=== PATIENT | male | born 1950 ===

== ENCOUNTER 2017-10-12 09:30 | Observation (INO) | payer BC, OTHER ==
[2017-10-12] MEDS ORDERED: ASPIRIN 325 MG TAB ONE (14:14)
[2017-10-12] MEDS ORDERED: METOPROLOL SUCCINATE XR 50 MG TAB PO ONE (21:35)
[2017-10-12] MEDS ORDERED: ASPIRIN 325 MG TAB PO ONE (22:15)
--- NOTE | 2017-10-13 06:54 | CPEKG ---
Heart Rate: 63 RR Interval: 952 P-R Interval: 152 QRSD Interval: 104 QT Interval: 432 QTC Interval: 443 P Crestline: 64 QRS Crestline: -19 T Wave Crestline: 37 EKG Severity - ABNORMAL ECG - EKG Impression: SINUS RHYTHM EKG Impression: MULTIPLE ATRIAL PREMATURE COMPLEXES EKG Impression: PROBABLE LEFT ATRIAL ABNORMALITY EKG Impression: BORDERLINE LEFT AXIS DEVIATION Electronically Signed By: Arden Gan 13-Oct-2017 11:26:45
[2017-10-13] MEDS ORDERED: ASPIRIN 81 MG CHEWABLE TAB PO SCH (09:00)
[2017-10-13] MEDS ORDERED: ROSUVASTATIN CALCIUM 20 MG TAB PO SCH (09:00)
[2017-10-13] MEDS ORDERED: RAMIPRIL 2.5 MG CAP PO SCH (09:00)
[2017-10-13 14:29] VITALS: BP 130/91
[2017-10-13] MEDS ORDERED: METOPROLOL SUCCINATE XR 50 MG TAB PO SCH (21:00)
--- NOTE | 2017-10-14 16:26 | EDPHY ---
H & P Stated Complaint: NO CHARTING FOUND WITH PT C/O POSS CARDIAC Time Seen by Provider: 10/12/17 09:50 - Personal History Current Tetanus/Diphtheria Vaccine: Yes Current Tetanus Diphtheria and Acellular Pertussis (TDAP): Yes - Medical/Surgical History Hx Cardiac Disease: Yes Constitutional: Initial Vital Signs Temperature (C) 36.4 C 10/12/17 09:50 Heart Rate 81 10/12/17 09:50 Respiratory Rate 16 10/12/17 09:50 Blood Pressure 143/86 H 10/12/17 09:50 O2 Sat (%) 98 10/12/17 09:50 Allergies/Adverse Reactions: No Known Allergies Allergy (Unverified 10/12/17 22:27) Home Medications: Medication Instructions Recorded Metoprolol Succinate Xr [Toprol Xl 50 mg PO HS 10/12/17 50 mg (*)] Ramipril [Altace 2.5mg (*)] 2.5 mg PO DAILY 10/12/17 Rosuvastatin Calcium [Crestor 20mg 5 mg PO DAILY 10/12/17 (*)] Aspirin [Aspirin 325 mg (*)] 325 mg PO DAILY #90 tab 10/13/17 Medical Decision Making ED Course/Re-evaluation: This note was created during prolonged hospital-wide EHR downtime and may be incomplete or contain inaccuracies to due circumstance limitations. CHIEF COMPLAINT: Chest pain, arm numbness HISTORY OF PRESENT ILLNESS: The patient is a 67 y/o male with hypertension and hyperlipidemia arriving with his family member complaining of chest pain onset last night while sleeping. He arrived here from [place] on , 5 days ago. He noticed mild left-sided chest pressure in the middle of the night, but was able to return to sleep. When he woke around 07:30, 1 hour ago, he continued to feel poor. He describes left-sided chest pain, lightheadedness, diaphoresis, dyspnea, and left arm numbness. He has had similar symptoms previously, "but usually they just come and goes real quick." He had a stress test 2 years ago that he thinks was normal. He has never had a catheterization or cardiac ultrasound. He takes a baby aspirin daily and took 3 this morning due to symptoms. No recent illness or trauma. His father had cardiac disease. REVIEW OF SYSTEMS: A 10 point review of systems was performed and is negative with the exception of the elements mentioned in the history of present illness. PHYSICAL EXAM: HR, BP, O2 Sat, RR. Temp noted General Appearance: Alert, well hydrated, appropriate, and non-toxic appearing. Head: Atraumatic without scalp tenderness or obvious injury Eyes: Pupils equal, round, reactive to light and accommodation, EOMI, no trauma , no injection. Nose: Atraumatic, no rhinorrhea, clear. Throat: Mucus membranes moist. Neck: Supple Respiratory: No retractions, no distress, no wheezes, and no accessory muscle use. Lungs are clear to auscultation bilaterally. Cardiovascular: Regular rate and rhythm, no murmurs, rubs, or gallops. Good capillary refill all extremities. Gastrointestinal: Abdomen is soft, non-tender, non-distended, no masses, no rebound, no guarding, no peritoneal signs. Musculoskeletal: Normal active ROM of all extremities, atraumatic. Neurological: Alert, appropriate, and interactive. Nonfocal. Skin: No rashes, good turgor, no nodules on palpation. PAST MEDICAL HISTORY: Hypertension, hyperlipidemia PAST SURGICAL HISTORY: Denies SOCIAL HISTORY: Visiting from [place]. Family member at bedside. Nonsmoker. DIAGNOSTICS/PROCEDURES/CRITICAL CARE TIME: The 12 lead EKG was interpreted by myself. Sinus mechanism, PVC. See hard copy and/or "tracemaster" electronic copy for interpretation. Chest x-ray: negative The 12 lead EKG was interpreted by myself. Sinus mechanism, poor R wave progression. See hard copy and/or "tracemaster" electronic copy for interpretation. DIFFERENTIAL DIAGNOSIS: The differential diagnosis for the patient's chest pain included but was not limited to myocardial ischemia, pulmonary embolus, chest wall pain, pleural inflammation, and pulmonary infectious causes. MEDICAL DECISION MAKING: This is a 67 y/o male with some cardiac risk factors including hypertension and hyperlipidemia who presents with a few-hour history of left-sided chest pain, dyspnea, lightheadedness, diaphoresis, arm numbness, and general malaise. Exam is unremarkable. Concern for acute coronary syndrome and other cardiac etiologies. Plan for IV, labs, EKG, chest x-ray. Labs including troponin are negative. Chest x-ray negative. No signs of acute ischemia on EKG. 1026: Consulted with Dr. Garrido, cardiology. She agrees with recommendation for admission. Spoke with hospitalist service. Dr. Lopez accepts admission for chest pain to PCU. This note was created during prolonged hospital-wide EHR downtime and may be incomplete or contain inaccuracies to due circumstance limitations. - Data Points Medications Given: Discontinued Medications Aspirin (Aspirin) 325 mg PO ONCE ONE Stop: 10/12/17 22:16 Last Admin: 10/13/17 06:05 Dose: Not Given Aspirin (Aspirin) 81 mg PO DAILY SANTANA Stop: 04/11/18 08:59 Last Admin: 10/13/17 09:17 Dose: Not Given Ramipril (Altace) 2.5 mg PO DAILY SANTANA Stop: 04/11/18 08:59 Last Admin: 10/13/17 09:15 Dose: 2.5 mg Rosuvastatin Calcium (Crestor) 5 mg PO DAILY SANTANA Stop: 04/11/18 08:59 Last Admin: 10/13/17 09:15 Dose: 5 mg Departure - Departure Disposition: [facility] Inpatient Acute Condition: Good Report Scribed for: Vladimir Badillo Report Scribed by: Keyana Romero Date of Report: 10/12/17 Time of Report: 09:50
== END 2017-10-13 15:03 | disposition home or self-care (01) ==
LOC: F2W 11:45
PROVIDERS: ADMIT Internal Medicine; ATTEND Hospitalist
DX: R07.9 Chest pain, unspecified (principal); R20.2 Paresthesia of skin; I10 Essential (primary) hypertension; E78.5 Hyperlipidemia, unspecified; Z87.891 Personal history of nicotine dependence; Z82.49 Family history of ischemic heart disease and other diseases of the circulatory system; Z79.82 Long term (current) use of aspirin